=== PATIENT | male | born 1985 | race Caucasian/White ===

== ENCOUNTER 2022-12-19 20:46 | Emergency (ER) | payer MEDICAID ==
[~2022-12-19] VITALS: Ht 180.3 cm; Wt 95.4 kg
[2022-12-19 21:15] VITALS: BP 146/56; PULSE 100; RESP 18; TEMP 97.3; O2SAT 98
== END 2022-12-19 22:50 | disposition left against medical advice (07) ==
LOC: ER 20:46
DX: F29 Unspecified psychosis not due to a substance or known physiological condition (principal); Z53.21 Procedure and treatment not carried out due to patient leaving prior to being seen by health care provider
CPT/HCPCS: 99281